=== PATIENT | female | born 1975 | race Hispanic/Latino ===

== ENCOUNTER 2020-11-18 21:18 | Emergency (ER) | payer BC ==
[2020-11-19] MEDS ORDERED: Acetaminophen 500 MG TAB ONE (00:04)
[2020-11-19] MEDS ORDERED: Silver Nitrate Application 1 EACH ONE (00:05)
[2020-11-19] MEDS ORDERED: Silver Sulfadiazine 50 GM TUBE ONE (00:09)
== END 2020-11-19 00:28 | disposition home or self-care (01) ==
LOC: CSHERS 21:18
DX: T25.121A Burn of first degree of right foot, initial encounter (principal); T31.0 Burns involving less than 10% of body surface; I10 Essential (primary) hypertension; X10.2XXA Contact with fats and cooking oils, initial encounter
CPT/HCPCS: 99283

== ENCOUNTER 2023-08-14 13:36 | Emergency (ER) | payer BC ==
[2023-08-14 15:30] LABS: #Basophils 0.1 10x3/uL (0.0-0.2); #Eosinphils 0.1 10x3/uL (0.0-0.5); #Monocytes 0.5 10x3/uL (0.0-1.1); #Neutrophils 7.7 10x3/uL (1.5-8.4); %Basophils 0.7 % (0.0-2.0); %Eosinophils 0.9 % (0.0-6.0); %Lymphocytes 26.4 % (18.0-47.0); %Monocytes 4.7 % (0.0-10.0); Hematocrit 44.1 % (34.9-44.5); Hemoglobin 14.9 g/dL (12.0-15.5); Mean Corpuscular HGB CONC 33.8 g/dL (32.0-36.0); Mean Platelet Volume 11.8 fl (7.4-10.4); Platelet Count 196 10x3/uL (150-450); RBC Distribution Width 13.5 % (11.5-14.5); Red Blood Cell (RBC) Count 5.13 10x6/uL (3.90-5.03); White Blood Cell (WBC) Count 11.5 10x3/uL (3.5-10.5)
[2023-08-14 15:48] LABS: ALT (SGPT) 37 U/L (8-55); Albumin 3.9 g/dL (3.5-5.0); Alkaline Phosphatase 81 U/L (40-110); Anion Gap 18 mmol/L (10-20); BUN (Urea Nitrogen) 20 mg/dL (7.0-18.7); Bilirubin, Total 0.2 mg/dL (0.2-1.2); Calc. Creatinine Clearance 0 mL/min (70-130); Calcium 9.3 mg/dL (7.8-10.44); Carbon Dioxide 21 mmol/L (22-29); Chloride 103 mmol/L (98-107); Estimated GFR 107; Globulin 3.5 g/dL (2.4-3.5); Glucose 153 mg/dL (70-105); Lipase 43 U/L (8-78); Potassium 3.6 mmol/L (3.5-5.1); Protein, Total 7.4 g/dL (6.0-8.3); Sodium 138 mmol/L (136-145)
[2023-08-14 15:49] LABS: AST (SGOT) 31 U/L (5-34)
[2023-08-14 15:55] LABS: Troponin I 0.083 ng/mL (< 0.028)
[2023-08-14] MEDS ORDERED: Aspirin Chewable 81 MG TAB ONE (16:05)
[2023-08-14] MEDS ORDERED: Oxymetazoline HCl 0.05% ( 15 ML ) ONE (18:13)
[2023-08-14 18:30] LABS: Lactic Acid 1.2 mmol/L (0.5-2.2)
[2023-08-14 18:37] LABS: Troponin I 0.075 ng/mL (< 0.028)
== END 2023-08-14 19:48 | disposition home or self-care (01) ==
LOC: CSHERS 13:36
DX: I11.0 Hypertensive heart disease with heart failure (principal); I50.9 Heart failure, unspecified; R04.0 Epistaxis
CPT/HCPCS: 36415; 71045; 80053; 83605; 83690; 83880; 84484; 85025; 93005

== ENCOUNTER 2024-08-27 08:04 | Outpatient (CLI) | payer BC | END 2024-08-27 08:05 | disposition home or self-care (01) | LOC: CSHMAMMO 08:04 | PROVIDERS: ATTEND Family Medicine | DX: Z12.31 Encounter for screening mammogram for malignant neoplasm of breast (principal); N63.21 Unspecified lump in the left breast, upper outer quadrant | CPT/HCPCS: 77063; 77067 ==